=== PATIENT | male | born 1975 | race Caucasian/White ===

== ENCOUNTER 2017-11-26 05:38 | Inpatient (IN) | payer OTHER ==
[2017-11-26] MEDS: TRANEXAMIC ACID 1,000 MG in DEXTROSE 5% 100 ML IVPB (06:00)
[2017-11-26] MEDS ORDERED: BUPIVACAINE 0.5% (SDV) 30 ML, morphine SULFATE (PF) 8 MG, EPINEPHrine 0.3 MG, KETOROLAC... IRR (06:00)
[2017-11-26] MEDS: SOD CHLORIDE 0.9% 100 ML, TRANEXAMIC ACID 3,000 MG IRR (06:00)
[2017-11-26] MEDS: DEXAMETHASONE 1 MG TAB PO (06:24)
[2017-11-26] MEDS: traMADol 50 MG TAB PO (06:24)
[2017-11-26] MEDS: GABAPENTIN 300 MG CAP PO ×2 (06:25→20:04)
[2017-11-26] MEDS ORDERED: morphine SULFATE/PF (10 MG/10 ML) INJ (06:45)
[2017-11-26] MEDS ORDERED: BUPIVACAINE 0.75%/DEXT (SPINAL) 2 ML INJ (06:45)
[2017-11-26] MEDS ORDERED: CA CHLORIDE 10% 10 ML SYRINGE (06:53)
[2017-11-26] MEDS ORDERED: THROMBIN 5000 UNIT VIAL (06:53)
[2017-11-26] MEDS ORDERED: LIDOCAINE 2% (SDV) 5 ML INJ (07:00)
[2017-11-26] MEDS ORDERED: PHENYLephrine (100 MCG/ML) 5ML SYG ×3 (07:08→07:51)
[2017-11-26] MEDS ORDERED: LABETALOL HCL 20MG INJ (07:18)
[2017-11-26] MEDS: CEFAZOLIN 2 GM/50 ML (PMX) 50 ML IVPB (07:20)
[2017-11-26] MEDS: POLYMYXIN/BACITRACIN 1L IRRIG (07:32)
[2017-11-26] MEDS ORDERED: SUCCINYLCHOLINE CHLORIDE 100 MG/5 ML SYG IV (07:38)
[2017-11-26] MEDS ORDERED: PROPOFOL 20 ML (07:38)
[2017-11-26] MEDS ORDERED: CEFAZOLIN 1 GM INJ (07:38)
[2017-11-26] MEDS ORDERED: ROCURONIUM 50 MG INJ (07:38)
[2017-11-26] MEDS ORDERED: SUGAMMADEX SODIUM 200 MG/2 ML VIAL IV (07:38)
[2017-11-26] MEDS ORDERED: HYDROmorphONE (0.2 MG/ML) 10ML SYG IV ×3 (08:00)
[2017-11-26] MEDS ORDERED: METOCLOPRAMIDE 10 MG INJ IV (08:00)
[2017-11-26] MEDS ORDERED: MEPERIDINE 25 MG INJ IV (08:00)
[2017-11-26] MEDS ORDERED: ALBUTEROL 0.083% (NEB) 2.5 MG/3 ML AMP HHN (08:00)
[2017-11-26] MEDS ORDERED: FENTAnyl 50 MCG/ML VIAL IV ×2 (08:00)
[2017-11-26] MEDS: LACTATED RINGER'S 1,000 ML IV ×3 (08:46→20:03)
[2017-11-26] MEDS ORDERED: MAGNESIUM HYDROXIDE 30ML CUP PO (09:00)
[2017-11-26] MEDS ORDERED: morphine 2 MG INJ IV ×2 (09:00)
[2017-11-26] MEDS ORDERED: KETOROLAC 15 MG INJ IV (09:00)
[2017-11-26] MEDS ORDERED: ZOLPIDEM 5 MG TAB PO (09:00)
[2017-11-26] MEDS ORDERED: OXYCODONE/ACETAMINOPHEN (5/325) TAB PO (09:00)
[2017-11-26] MEDS ORDERED: ONDANSETRON 4 MG INJ IV (09:00)
[2017-11-26] MEDS ORDERED: ACETAMINOPHEN 500 MG TAB PO (09:00)
[2017-11-26] MEDS: ASPIRIN (EC) 325 MG TAB PO (09:54)
[2017-11-26] MEDS: CEFAZOLIN 1 GM/50 ML (PMX) 50 ML IVPB ×2 (09:54→16:40)
[2017-11-26] MEDS: TRANEXAMIC ACID 1,000 MG in DEXTROSE 5% 100 ML IV (10:10)
[2017-11-26] MEDS: ONDANSETRON 4 MG INJ IV (10:23)
[2017-11-26] MEDS: DIPHENHYDRAMINE 50 MG INJ IV ×5 (10:23→20:48)
[2017-11-26 10:34] LABS: ADD MAN DIFF? NO
[2017-11-26 10:36] LABS: BASOPHILS % 0.4 % (0.0-2.0); EOSINOPHILS # 0.1 10^3/ul (0.0-0.5); EOSINOPHILS % 0.9 % (0.0-7.0); HEMATOCRIT 38.2 % (42.0-52.0); HEMOGLOBIN 12.1 g/dl (14.0-18.0); LYMPHOCYTES # 2.2 10^3/ul (0.8-2.9); LYMPHOCYTES % 27.6 % (15.0-51.0); MEAN CORPUSCULAR HEMOGLOBIN 26.9 pg (29.0-33.0); MEAN CORPUSCULAR HGB CONC 31.7 g/dl (32.0-37.0); MEAN CORPUSCULAR VOLUME 85.1 fl (82.0-101.0); MEAN PLATELET VOLUME 9.8 fl (7.4-10.4); MONOCYTE # 0.5 10^3/ul (0.3-0.9); MONOCYTES % 6.5 % (0.0-11.0); NEUTROPHILS % 63.2 % (39.0-77.0); PLATELET COUNT 265 10^3/UL (140-415); RED BLOOD COUNT 4.49 10^6/ul (4.70-6.10); RED CELL DISTRIBUTION WIDTH 15.5 % (11.5-14.5)
[2017-11-26 10:36] LABS: WHITE BLOOD COUNT 7.9 10^3/ul (4.8-10.8)
[2017-11-26] MEDS: SENNA/DOCUSATE NA (8.6MG/50MG) TAB PO ×2 (11:47→20:04)
[2017-11-26] MEDS: DEXAMETHASONE 2 MG TAB PO ×2 (11:47→17:50)
[2017-11-27] MEDS: DEXAMETHASONE 2 MG TAB PO ×2 (00:03→05:30)
[2017-11-27] MEDS: DIPHENHYDRAMINE 50 MG INJ IV ×2 (00:05→06:45)
[2017-11-27] MEDS: CEFAZOLIN 1 GM/50 ML (PMX) 50 ML IVPB (00:29)
[2017-11-27] MEDS: LACTATED RINGER'S 1,000 ML IV (05:31)
[2017-11-27 05:35] LABS: ADD MAN DIFF? NO
[2017-11-27 05:43] LABS: WHITE BLOOD COUNT 11.4 10^3/ul (4.8-10.8)
[2017-11-27 05:43] LABS: BASOPHILS % 0.2 % (0.0-2.0); EOSINOPHILS % 0.1 % (0.0-7.0); HEMATOCRIT 34.3 % (42.0-52.0); HEMOGLOBIN 11.2 g/dl (14.0-18.0); LYMPHOCYTES # 1.1 10^3/ul (0.8-2.9); MEAN CORPUSCULAR HEMOGLOBIN 26.9 pg (29.0-33.0); MEAN CORPUSCULAR HGB CONC 32.7 g/dl (32.0-37.0); MEAN CORPUSCULAR VOLUME 82.5 fl (82.0-101.0); MEAN PLATELET VOLUME 10.5 fl (7.4-10.4); MONOCYTE # 0.8 10^3/ul (0.3-0.9); MONOCYTES % 6.7 % (0.0-11.0); NEUTROPHIL # 9.5 10^3/ul (1.6-7.5); NEUTROPHILS % 82.6 % (39.0-77.0); PLATELET COUNT 265 10^3/UL (140-415); RED BLOOD COUNT 4.16 10^6/ul (4.70-6.10); RED CELL DISTRIBUTION WIDTH 15.1 % (11.5-14.5)
[2017-11-27] MEDS: SENNA/DOCUSATE NA (8.6MG/50MG) TAB PO (09:00)
[2017-11-27] MEDS: OXYCODONE/ACETAMINOPHEN (5/325) TAB PO (09:54)
== END 2017-11-27 11:40 | disposition home or self-care (01) | DRG 470 ==
LOC: REC 05:38 → MS1 10:42
PROVIDERS: Orthopaedic Surgery
PROC: 0SRB04A Replacement of Left Hip Joint with Ceramic on Polyethylene Synthetic Substitute, Uncemented, Open Approach (ICD-10-PCS; principal; 2017-11-26 07:00)
DX: M16.52 Unilateral post-traumatic osteoarthritis, left hip (principal)
CPT/HCPCS: 72170; 73530; 85025; 87086; 97161

== ENCOUNTER → 2018-01-19 | Outpatient (CLI) | payer OTHER | END | disposition home or self-care (01) | LOC: VAS 15:20 | DX: M79.662 Pain in left lower leg (principal) | CPT/HCPCS: 93971 ==

== ENCOUNTER 2018-12-16 05:12 | Inpatient (IN) | payer OTHER ==
[~2018-12-16 05:12] MED LIST: CEFAZOLIN 2 GM/50 ML (PMX) 50 ML IVPB
[2018-12-16] MEDS: DEXAMETHASONE 1 MG TAB PO (05:46)
[2018-12-16] MEDS: GABAPENTIN 300 MG CAP PO ×2 (05:47→20:11)
[2018-12-16] MEDS ORDERED: BUPIVACAINE 0.5% (SDV) 30 ML, morphine SULFATE (PF) 8 MG, EPINEPHrine 0.3 MG, KETOROLAC... IRR (06:00)
[2018-12-16] MEDS: SOD CHLORIDE 0.9% 100 ML, TRANEXAMIC ACID 3,000 MG IRR (06:00)
[2018-12-16] MEDS ORDERED: LIDOCAINE 2% (SDV) 5 ML INJ (06:59)
[2018-12-16] MEDS ORDERED: PROPOFOL 20 ML (06:59)
[2018-12-16] MEDS ORDERED: ROCURONIUM 50 MG INJ (06:59)
[2018-12-16] MEDS: CEFAZOLIN 2 GM/50 ML (PMX) 50 ML IVPB (07:15)
[2018-12-16] MEDS ORDERED: THROMBIN 5000 UNIT VIAL (07:30)
[2018-12-16] MEDS: POLYMYXIN/BACITRACIN 1L IRRIG (07:30)
[2018-12-16] MEDS ORDERED: CA CHLORIDE (GM) 10% 10 ML INJ (07:30)
[2018-12-16] MEDS ORDERED: CEFAZOLIN 1 GM INJ (07:45)
[2018-12-16] MEDS ORDERED: DEXAMETHASONE 4 MG/ML 5 ML INJ (07:45)
[2018-12-16] MEDS ORDERED: ONDANSETRON 4 MG INJ (07:45)
[2018-12-16] MEDS ORDERED: MAGNESIUM HYDROXIDE 30ML CUP PO (09:30)
[2018-12-16] MEDS ORDERED: DIPHENHYDRAMINE 50 MG INJ IV ×2 (09:30→10:00)
[2018-12-16] MEDS ORDERED: NACL 0.9% 3 ML SYG IV (09:30)
[2018-12-16] MEDS ORDERED: ZOLPIDEM 5 MG TAB PO (09:30)
[2018-12-16] MEDS ORDERED: oxyCODONE 5 MG TAB PO ×2 (09:30)
[2018-12-16] MEDS ORDERED: ONDANSETRON 4 MG INJ IV (10:00)
[2018-12-16] MEDS ORDERED: EPHEDrine 25 MG/5 ML SYG IV (10:00)
[2018-12-16] MEDS ORDERED: MEPERIDINE 25 MG INJ IV (10:00)
[2018-12-16] MEDS ORDERED: KETOROLAC 30 MG INJ IV (10:00)
[2018-12-16] MEDS ORDERED: OXYCODONE/ACETAMINOPHEN (5/325) TAB PO ×2 (10:00)
[2018-12-16] MEDS ORDERED: LABETALOL HCL 20MG INJ IV (10:00)
[2018-12-16] MEDS ORDERED: HYDROmorphONE 1 MG/5 ML IV SYRINGE IV ×2 (10:00)
[2018-12-16] MEDS ORDERED: FENTAnyl 50 MCG/ML VIAL IV ×3 (10:00)
[2018-12-16] MEDS ORDERED: METOCLOPRAMIDE 10 MG INJ IV (10:00)
[2018-12-16] MEDS ORDERED: hydrALAzine 20 MG INJ IV (10:00)
[2018-12-16] MEDS ORDERED: ALBUTEROL 0.083% (NEB) 2.5 MG/3 ML AMP HHN (10:00)
[2018-12-16] MEDS ORDERED: MIDAZOLAM 1 MG/ML 2 ML INJ IV (10:00)
[2018-12-16] MEDS: TRANEXAMIC ACID 1GM/100ML(PMX) 100 ML IVPB (10:41)
[2018-12-16] MEDS: HYDROmorphONE 1 MG/5 ML IV SYRINGE IV ×4 (10:54→13:47)
[2018-12-16] MEDS: DEXAMETHASONE 2 MG TAB PO ×3 (13:51→23:20)
[2018-12-16] MEDS: ONDANSETRON 4 MG INJ IV ×2 (14:48→20:11)
[2018-12-16] MEDS: LACTATED RINGER'S 1,000 ML IV ×4 (15:28→19:21)
[2018-12-16] MEDS: CEFAZOLIN 1 GM/50 ML (PMX) 50 ML IVPB ×2 (16:11→23:19)
[2018-12-16] MEDS: ACETAMINOPHEN 1000MG/100ML IV 100 ML IVPB ×2 (20:00→20:10)
[2018-12-16] MEDS: SENNA/DOCUSATE NA (8.6MG/50MG) TAB PO (20:11)
[2018-12-16] MEDS: oxyCODONE 5 MG TAB PO (22:23)
[2018-12-17] MEDS: LACTATED RINGER'S 1,000 ML IV ×3 (01:36→15:21)
[2018-12-17] MEDS: ACETAMINOPHEN 1000MG/100ML IV 100 ML IVPB (03:56)
[2018-12-17] MEDS: oxyCODONE 5 MG TAB PO ×3 (04:37→12:50)
[2018-12-17] MEDS: DEXAMETHASONE 2 MG TAB PO (05:59)
[2018-12-17] MEDS: HYDROmorphONE 1 MG/ML SYG IV (06:00)
[2018-12-17] MEDS: SENNA/DOCUSATE NA (8.6MG/50MG) TAB PO (08:22)
[2018-12-17] MEDS: ASPIRIN (EC) 325 MG TAB PO (08:22)
[2018-12-17] MEDS: CEFAZOLIN 1 GM/50 ML (PMX) 50 ML IVPB (08:23)
[2018-12-18] MEDS ORDERED: MAGNESIUM HYDROXIDE 30ML CUP PO (21:00)
== END 2018-12-17 16:40 | disposition home or self-care (01) | DRG 552 ==
LOC: REC 05:12 → MS1 14:59
PROC: 3E0T3TZ Introduction of Destructive Agent into Peripheral Nerves and Plexi, Percutaneous Approach (ICD-10-PCS; principal; 2018-12-16 07:00)
DX: M54.32 Sciatica, left side (principal)
CPT/HCPCS: 86999; 97116; 97161; 97530